=== PATIENT | female | born 1995 | race Caucasian/White ===

== ENCOUNTER 2017-02-13 22:46 | Emergency (ER) | payer BC ==
[2014-09-17 00:35] VITALS: BMI 20.9
[~2017-02-13 22:46] MED LIST: CLEOCIN HCL150 MG PO; MELATONIN 3 MG1 TAB PO; PROBIOTIC; ZANTAC150 MG PO
== END 2017-02-14 00:55 | disposition home or self-care (01) ==
LOC: D.ER 22:46
DX: F41.9 Anxiety disorder, unspecified (principal); R51 Headache; F17.200 Nicotine dependence, unspecified, uncomplicated